=== PATIENT | female | born 1985 | race Caucasian/White ===

== ENCOUNTER → 2019-07-17 | Outpatient (REF) | payer MEDICAID, OTHER ==
[2019-07-17 18:07] LABS: HEMATOCRIT 38.4 % (36.0-47.0); HEMOGLOBIN 12.7 g/dl (12.0-15.5); MEAN CORPUSCULAR HEMOGLOBIN 31.3 pg (27.0-33.0); MEAN CORPUSCULAR HGB CONC 33.1 g/dl (32.0-36.5); MEAN CORPUSCULAR VOLUME 94.6 fl (80.0-96.0); PLATELET COUNT, AUTOMATED 265 10^3/uL (150-450); RED BLOOD COUNT 4.06 10^6/uL (4.00-5.40); WHITE BLOOD COUNT 6.7 10^3/uL (4.0-10.0)
[2019-07-18 11:16] LABS: HEPATITIS B SURFACE ANTIGEN NEGATIVE (NEGATIVE); HIV 1&2 SCREEN CENTAUR NEGATIVE (NEGATIVE); RUBELLA IgG QUALITATIVE IMMUNE (IMMUNE)
[2019-07-18 11:18] LABS: HEPATITIS C VIRUS ABY INDEX > 11.0 INDEX (<0.8)
== END ==
LOC: M PLALAB 15:01
PROVIDERS: ATTEND Advanced Practice Midwife
DX: Z34.81 Encounter for supervision of other normal pregnancy, first trimester (principal)

== ENCOUNTER → 2019-08-17 | Outpatient (CLI) | payer OTHER | LOC: M PLALAB 14:31 | PROVIDERS: ATTEND Advanced Practice Midwife | DX: R76.8 Other specified abnormal immunological findings in serum (principal) ==

== ENCOUNTER → 2019-08-17 | Outpatient (REF) | payer OTHER | LOC: M PLALAB 14:28 | PROVIDERS: ATTEND Advanced Practice Midwife | DX: Z53.9 Procedure and treatment not carried out, unspecified reason (principal) ==

== ENCOUNTER → 2019-08-17 | Outpatient (REF) | payer OTHER ==
[2019-08-17 19:11] LABS: CHLAMYDIA DNA AMPLIFICATION NEGATIVE (NEGATIVE); GC DNA AMPLIFICATION NEGATIVE (NEGATIVE)
== END ==
LOC: M SFHCWAGY 16:39
PROVIDERS: ATTEND Advanced Practice Midwife
DX: Z34.81 Encounter for supervision of other normal pregnancy, first trimester (principal)

== ENCOUNTER → 2019-09-18 | Outpatient (CLI) | payer OTHER ==
[~2019-09-18] MED LIST: ACET-683 PO; COLA100C5 PO; IBUP1TAB7 PO; IBUP80TA PO; OXYC1TAB23 PO; PRENTAB9 PO; PRIL20TA2 PO; ZOLO50TA PO
--- NOTE | 2019-09-19 02:43 | REP ---
Clinical: Anatomical evaluation. Comparison: None . Findings: Examination demonstrates a single live intrauterine in variable presentation. motion is identified by technologist. Placenta is noted anterior and grade zero without evidence for placenta previa or abruption. Amniotic fluid volume is normal. Cervix measures 3.3 cm in length and appears closed. No evidence for nuchal cord. Possible 3.5 cm anterior intramural fibroid. Gestational age by current measurements 19 weeks 1 day with THUAN 02/11/2020 . FHR equals 147 beats per minute. BPD 4.5 cm 19 weeks 4 days HC 16.5 cm 19 weeks 2 days AC 13.7 cm 19 weeks 1 day FL 3.0 cm 19 weeks 3 days HL 2.9 cm 19 weeks 4 days HC/AC ratio 1.20 Estimated weight 284 grams ( 50th percentile). Anatomical assessment demonstrates normal structures including cranium, choroid plexus, cavum, cerebellum/posterior fossa, diaphragm, stomach, cord insertion/three-vessel cord, bladder, and extremities. Limited evaluation of the facial features, heart/ventricular outflow tracts, kidneys and spine. Impression: 1. Single live intrauterine in variable presentation demonstrating appropriate estimated weight. Anatomical limitations as noted above may warrant reevaluation and follow-up. 2. Possible anterior intramural fibroid.
== END ==
LOC: M WHC 12:52
PROVIDERS: ATTEND Advanced Practice Midwife
DX: O09.522 Supervision of elderly multigravida, second trimester (principal); O09.292 Supervision of pregnancy with other poor reproductive or obstetric history, second trimester; Z3A.19 19 weeks gestation of pregnancy

== ENCOUNTER → 2019-10-23 | Outpatient (CLI) | payer OTHER ==
--- NOTE | 2019-10-23 14:37 | REP ---
Clinical: Anatomical evaluation. Comparison: 09/18/2019 . Findings: Examination demonstrates a single live intrauterine in cephalic presentation. motion is identified by technologist. Placenta is noted anterior and grade I without evidence for placenta previa or abruption. Amniotic fluid volume is normal. Cervix measures 3.5 cm in length and appears closed. No evidence for nuchal cord. Gestational age by LMP 24 weeks 1 day with THUAN 02/11/2020 . Gestational age by current measurements 24 weeks 6 days with THUAN 02/06/2020 . FHR equals 149 beats per minute. Estimated weight 792 grams ( 78th percentile). Anatomical assessment demonstrates normal structures including cranium, choroid plexus, cavum, cerebellum/posterior fossa, facial features, lungs, four-chamber heart/ventricular outflow tracts, stomach, cord insertion/three-vessel cord, kidneys/bladder, spine, and extremities. Impression: Single live intrauterine in cephalic presentation demonstrating appropriate interval growth. In conjunction with prior examination anatomical assessment is complete and normal. No gross abnormalities are identified.
== END ==
LOC: M WHC 11:34
PROVIDERS: ATTEND Specialist
DX: Z36.2 Encounter for other antenatal screening follow-up (principal); Z3A.24 24 weeks gestation of pregnancy

== ENCOUNTER → 2019-10-23 | Outpatient (REF) | payer OTHER ==
[2019-10-23 15:15] LABS: HEMATOCRIT 34.6 % (36.0-47.0); HEMOGLOBIN 11.4 g/dl (12.0-15.5); MEAN CORPUSCULAR HGB CONC 32.9 g/dl (32.0-36.5); MEAN CORPUSCULAR VOLUME 97.2 fl (80.0-96.0); PLATELET COUNT, AUTOMATED 222 10^3/uL (150-450); RED BLOOD COUNT 3.56 10^6/uL (4.00-5.40); WHITE BLOOD COUNT 8.1 10^3/uL (4.0-10.0)
== END ==
LOC: M PLALAB 11:33
PROVIDERS: ATTEND Specialist
DX: Z36.89 Encounter for other specified antenatal screening (principal); Z3A.00 Weeks of gestation of pregnancy not specified

== ENCOUNTER → 2020-01-16 | Outpatient (REF) | payer OTHER ==
[~2020-01-16] MED LIST changes: -COLA100C5 PO; -IBUP1TAB7 PO; -OXYC1TAB23 PO; -ZOLO50TA PO
== END ==
LOC: M SFHCWAGY 16:43
PROVIDERS: ATTEND Advanced Practice Midwife
DX: Z34.83 Encounter for supervision of other normal pregnancy, third trimester (principal); Z3A.00 Weeks of gestation of pregnancy not specified

== ENCOUNTER 2020-02-10 08:41 | Inpatient (IN) | payer OTHER ==
[2020-02-10] VITALS (20 sets, daily range): BP systolic 101–147; BP diastolic 56–80
[~2020-02-10] VITALS: Ht 165.1 cm; Wt 88.8 kg
[2020-02-10] MEDS ORDERED: NICOTINE 14 MG/24 HR TRANSDERMAL TD SCH (09:00)
[2020-02-10] MEDS ORDERED: PRENTAB9 PO (09:06)
[2020-02-10] MEDS ORDERED: PRIL20TA2 PO (09:06)
--- NOTE | 2020-02-10 10:58 | HPEPDOC ---
Obstetrical History & Physical General Date of Admission Feb 10, 2020 at 08:41 History of Present Illness 34yo who presents for an IOL secondary to AMA. 40+0 weeks . Denies VB/LOF/uctx. Reports +FM. ROS negative Chief Complaint: Induction of labor Information Provided By: Patient, RN/MD Age: 34 : 3 Term: 0 Pre-term: 0 Abortions: 2 Livin Care Care: Good Care Dating Final EDC for Daily Update: Feb 10, 2020 Final EDC by: LMP, 1st trimester (US) EGA at Admission: 40.0 Antepartum Course Diagnos(e)s Advanced maternal age. 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 BREAST: . ABDOMEN: Gravid and non-tender to touch. FETUS: Is vertex (VTX) by sterile vaginal examination (SVE), fetus is vertex (VTX) by Jorge. HEART RATE: Regular rate and rhythm. LUNGS: Clear to auscultation (CTA). EXTREMITIES: No edema. No clonus. Vital Signs[facility] Laboratory Tests 2 02/10/20 08:50: Serology Scanned Report Hepatitis B Testing CBC/BMP Laboratory Tests 02/10/20 08:50: Serology Scanned Report Hepatitis B Testing Pertinent Laboratoy Data Blood Type: A+ RBC Antibody Screen: Negative HIV: Negative Hepatitis B: Negative Hepatitis C: Positive Rapid Plasma Reagin: Nonreactive Rubella: Immune Varicella: Immune Chlamydia/Gonorrhea: Negative Group B Streptococcus: Negative Vaginal Examination Dilation: Fingertip Effacement: 50% Station: -3 Cervical Consistency: Soft Cervical Position: Anterior Presentation: Cephalic presentation Assessment Heart Rate (FHR): 140 Variability: Moderate Accelerations: Positive Decelerations: None Tocometer Frequency: irregular Assessment/Plan Assessment Roxie is a 34-year-old (G)3 para (P)0-0-2-0 at 40+0 weeks. Presents to Labor and Delivery (L&D) for an IOL. AMA. Plan Admit and orient. Routine labs Repeat UDS Feed Blender and consent. Group B Streptococcus (GBS) negative Counseled on IOL; start with cervical ripening with misoprostol. Anticipate . C-S as appropriate. ISABELLA MILLER DO Feb 10, 2020 10:57
[2020-02-10] MEDS ORDERED: LACTATED RINGER'S 1000 ML IV STA (10:59)
[2020-02-10] MEDS: LR 1,000 ML IV SCH ×2 (11:52→20:13)
[2020-02-10 12:02] LABS: HEMATOCRIT 37.6 % (36.0-47.0); HEMOGLOBIN 12.8 g/dl (12.0-15.5); MEAN CORPUSCULAR HEMOGLOBIN 31.4 pg (27.0-33.0); MEAN CORPUSCULAR VOLUME 92.2 fl (80.0-96.0); PLATELET COUNT, AUTOMATED 204 10^3/uL (150-450); RED BLOOD COUNT 4.08 10^6/uL (4.00-5.40); WHITE BLOOD COUNT 6.7 10^3/uL (4.0-10.0)
[2020-02-10] MEDS: miSOPROStol 50 MCG 1/2 TAB (S0191) SL SCH ×2 (12:16→15:48)
[2020-02-10 12:39] LABS: AMPHETAMINES URINE REFLEX NEGATIVE (NEGATIVE); BARBITURATES URINE REFLEX NEGATIVE (NEGATIVE); BENZODIAZEPINES URINE REFLEX NEGATIVE (NEGATIVE); CANNABINOIDS URINE REFLEX NEGATIVE (NEGATIVE); COCAINE METABOLITE URINE REFLE NEGATIVE (NEGATIVE); METHADONE URINE REFLEX NEGATIVE (NEGATIVE); OPIATES URINE REFLEX NEGATIVE (NEGATIVE); PHENCYCLIDINE URINE REFLEX NEGATIVE (NEGATIVE)
[2020-02-10] MEDS ORDERED: FENTANYL 2MCG/ML ROPIVACAINE 0.2% IN 0.9% NACL 100ML IVBAG As Ordered ONE (23:10)
[2020-02-10] MEDS ORDERED: diphenhydrAMINE 50MG/ML VIAL (J1200) IV PRN (23:50)
[2020-02-10] MEDS ORDERED: ePHEDrine SULFATE 25 MG/5 ML(5MG/ML) SYRINGE IV PRN (23:50)
[2020-02-10] MEDS ORDERED: FENTANYL/ROPIVACAINE/NACL BAG 100 ML EPIDURAL SCH (23:50)
[2020-02-10] MEDS ORDERED: NALOXONE INJ 0.4MG/1ML VIAL (J2310 PER 1MG) IV PRN (23:50)
[2020-02-10] MEDS ORDERED: LACTATED RINGER'S 1000 ML IV PRN (23:50)
[2020-02-10] MEDS ORDERED: REFRIGERATOR IV KEYS XX PRN (23:50)
[2020-02-10] MEDS ORDERED: EPIDURAL COMMENT XX SCH (23:50)
[2020-02-10] MEDS ORDERED: EPIDURAL/PCA KEYS XX PRN (23:50)
[2020-02-10] MEDS ORDERED: ONDANSETRON 4MG/2ML VIAL IV PRN (23:50)
[2020-02-11] VITALS (22 sets, daily range): BP systolic 87–136; BP diastolic 51–67
[2020-02-11] MEDS ORDERED: OXYTOCIN DRIP 30 UNITS in IV 1 EA IV SCH ×2 (01:30→04:02)
[2020-02-11] MEDS ORDERED: LR 1,000 ML IV SCH (04:02)
[2020-02-11] MEDS ORDERED: IBUPROFEN 800 MG TAB PO PRN (04:15)
[2020-02-11] MEDS ORDERED: ACETAMINOPHEN 500 MG TAB PO PRN (04:15)
[2020-02-11] MEDS ORDERED: DIBUCAINE 1% OINTMENT 30GM TOP PRN (04:15)
[2020-02-11] MEDS ORDERED: ONDANSETRON 4MG/2ML VIAL IV PRN (04:15)
[2020-02-11] MEDS ORDERED: IBUPROFEN 600MG TAB PO PRN (04:15)
[2020-02-11] MEDS ORDERED: MEASLES,MUMPS,RUBELLA VACCINE INJ (MMR-II) (90707) SC SCH (04:15)
[2020-02-11] MEDS ORDERED: RHOGAM 300 MCG (1500 IU) INJ (J2790) IM SCH (04:15)
[2020-02-11] MEDS ORDERED: PROMETHAZINE 25 MG TAB PO PRN (04:15)
[2020-02-11] MEDS ORDERED: DOCUSATE SODIUM 100 MG CAP PO PRN (04:15)
--- NOTE | 2020-02-11 04:17 | DNPDOC ---
[facility] Delivery Note Delivery Note DATE OF DELIVERY: 02/11/2020 TIME OF DELIVERY: 0336 Spontaneous vaginal delivery. WORKDAY SENIOR ASSOCIATE: Dr. Lauri Mcqueen DO FACOG ANESTHESIA: Epidural. ESTIMATED BLOOD LOSS: 200 mL. FINDINGS: 8 pound 11 ounce (3950g) male infant, Score 9 and 9. DELIVERY SUMMARY: The active phase and second stage of labor progressed in normal fashion.. She received Pitocin augmentation throughout her labor course. The head delivered in the DAT position, and restituted LOT. No nuchal cord was noted. The anterior shoulder delivered with gentle downward guidance and the remainder of the body delivered with ease. The baby was placed on the patient's chest. Delayed cord clamping occurred for approximately 1 minute. The cord was then doubly clamped and cut. IV Pitocin was bolused to actively manage the third stage of labor. The placenta delivered intact without any difficulty within 10 minutes of delivery. The uterine fundus was noted to be firm and 2 cm below the umbilicus. The cervix, vagina, vulva and perineum were inspected. A first degree laceration was noted and immediately repaired with 3-0 Vicryl in typical fashion. Excellent hemostasis was noted. Sponge, needle and instrument counts were correct per protocol. DO DEREJE Valentine JONATHAN R. DO Feb 11, 2020 04:17
[2020-02-11] MEDS: PRENATAL VITAMINS CHEWABLE TABLET PO SCH (09:04)
[2020-02-11] MEDS ORDERED: NICOTINE 14 MG/24 HR TRANSDERMAL TD PRN (16:30)
[2020-02-11] MEDS: ACETAMINOPHEN TAB 650MG DOSE (2X325MG) PO PRN (17:42)
[2020-02-12 05:29] VITALS: BP 125/72
--- NOTE | 2020-02-12 07:00 | IPNPDOC ---
Progress Note Date of Service: Feb 12, 2020 Day#: 1 Progress Note SUBJECT: Roxie is a who had a uncomplicated spontaneous vaginal delivery on 02/11/20. She has been ambulating, voiding spontaneously without issue and tolerating regular diet. Breast feeding without issue. Desires to be discharged to home today. OBJECTIVE: VITAL SIGNS: Within normal limits, afebrile. Alert and oriented times three. Repiratory: regular rate with no use of accessory muscles. Abdomen: Fundus firm at U. Soft, NTTP. Minimal lochia. ASSESSMENT: Day 1 from uncomplicated vaginal delivery PLAN: 1. Discharge to home today. 2. Tylenol and Motrin for pain. 3. See discharge notes. VS, I&O, 24H, Fishbone Vital Signs/I&O Vital Signs Date Time Temp Pulse Resp B/P (MAP) Pulse Ox O2 Delivery O2 Flow Rate FiO2 02/12/20 05:29 97.5 87 16 125/72 (89) 97 Room Air ELSI JOHNSON CNM Feb 12, 2020 07:00
[2020-02-12] MEDS ORDERED: IBUP80TA PO (07:19)
[2020-02-12] MEDS ORDERED: ACET-683 PO (07:19)
[2020-02-12] MEDS ORDERED: INFLUENZA QUADRIVALENT PF VACCINE 0.5ML SYRINGE IM ONE (09:00)
[2020-02-12] MEDS ORDERED: BOOSTRIX/ADACEL VACCINE (DIPHTH/PERTUSS/ACELL/TETANUS) 0.5ML SYR IM ONE (09:00)
[2020-02-12] MEDS: PRENATAL VITAMINS CHEWABLE TABLET PO SCH (09:02)
[2020-02-12] MEDS: ACETAMINOPHEN TAB 650MG DOSE (2X325MG) PO PRN (14:07)
== END 2020-02-12 17:20 | disposition home or self-care (01) | DRG 560 ==
LOC: M LDI 08:41 → M OBS 02-11 05:30
PROVIDERS: ADMIT Obstetrics & Gynecology; ATTEND Obstetrics & Gynecology
PROC: 3E0DXGC Introduction of Other Therapeutic Substance into Mouth and Pharynx, External Approach (ICD-10-PCS; 2020-02-10)
PROC: 10E0XZZ Delivery of Products of Conception, External Approach (ICD-10-PCS; principal; 2020-02-11)
PROC: 0HQ9XZZ Repair Perineum Skin, External Approach (ICD-10-PCS; 2020-02-11)
DX: O70.0 First degree perineal laceration during delivery (principal); O09.523 Supervision of elderly multigravida, third trimester; Z37.0 Single live birth; Z3A.40 40 weeks gestation of pregnancy

== ENCOUNTER → 2020-05-15 | Outpatient (REF) | payer OTHER | LOC: M SFHCPLAZ 18:06 | PROVIDERS: ATTEND Advanced Practice Midwife | DX: Z12.4 Encounter for screening for malignant neoplasm of cervix (principal) ==

== ENCOUNTER → 2020-06-02 | Outpatient (CLI) | payer OTHER ==
[~2020-06-02] MED LIST changes: +COLA100C5 PO; +IBUP1TAB7 PO; +OXYC1TAB23 PO; +ZOLO50TA PO
== END ==
LOC: M LABSMTC 12:37
PROVIDERS: ATTEND Anesthesiology
DX: Z20.828 Contact with and (suspected) exposure to other viral communicable diseases (principal)

== ENCOUNTER → 2020-06-17 | Outpatient (CLI) | payer OTHER | LOC: M LABSMTC 10:06 | PROVIDERS: ATTEND Anesthesiology | DX: Z01.812 Encounter for preprocedural laboratory examination (principal); Z20.822 Contact with and (suspected) exposure to COVID-19 ==

== ENCOUNTER 2020-06-18 12:23 | Day surgery (SDC) | payer OTHER ==
[~2020-06-18] VITALS: Ht 162.6 cm; Wt 83.5 kg
[~2020-06-18 12:23] MED LIST changes: -COLA100C5 PO; -IBUP1TAB7 PO; +LIDOCAINE 1% MDV 20ML VIAL SQ PRN; +LIDOCAINE 2% 100MG/5ML SDV (FOR ANES.) As Ordered ONE; +LR 1,000 ML IV ONE; +ONDANSETRON 4MG/2ML VIAL As Ordered ONE; -OXYC1TAB23 PO; +ROCURONIUM BROMIDE 50 MG/5 ML VIAL As Ordered ONE; +dexameTHASONE 4 MG/ML 1ML VIAL (J1100 PER 1MG) As Ordered ONE; +propofoL 200 MG/20 ML VIAL As Ordered ONE
[2020-06-18] MEDS ORDERED: MIDAZOLAM INJ 2MG/2ML VIAL (J2250 PER 1MG) As Ordered ONE (12:26)
[2020-06-18] MEDS ORDERED: fentaNYL 100 MCG/2 ML INJECTION (J3010) As Ordered ONE (12:26)
--- OUTSIDE RECORDS SUMMARY | 2020-06-18 12:27 | CCD ---
Author Author [facility] Organization [facility] Address Unknown Phone Unavailable Care Team Providers Care Hvac Estimator Name Role Phone Adilene Anthony Unavailable PROBLEMS Type Condition ICD9-CM Code [id number] Code Onset Dates Condition S tatus SNOMED Code Notes Problem Supervision of other normal Z34.80 Ac tive [id number] ALLERGIES No Known Allergies ENCOUNTERS from 1984 to 2020-05-21 Encounter Location Date Provider Diagnosis [facility] [place] [address] May, Adilene [facility] Routine gynecolog ical examination Z01.419 and Encounter for screening for malignant neoplasm of cervix Z12.4 IMMUNIZATIONS No Information SOCIAL HISTORY Tobacco Use: Social History Observation Description Date Details (start date - stop date) Current Smoker Sex Assigned At : Social History Observation Description Sex Assigned At Unknown Alcohol Screening: Question Answer Notes Did you have a drink containing alcohol in the past year? Ye s Points 3 Interpretation Positive How often did you have six or more drinks on one occas ion in the past year? Never (0 points) How many drinks did you have on a typica l day when you were drinking in the past year? 5 or 6 (2 points) How often did you have a drink containing alcohol in t he past year? Monthly or less (1 point) Tobacco Use: Question Answer Notes Are you a: current smoker How many cigarettes a day do you smoke? 11-20 Are you interested in quitting? Not ready to quit REASON FOR REFERRAL No Information VITAL SIGNS Weight 185.0 lbs May, Weight-kg 83.91 kg May, Height 66 in May, BMI 29.86 kg/m2 May, Blood pressure systolic 108 mm Hg May, Blood pressure diastolic 70 mm Hg May, MEDICATIONS Medication SIG (Take, Route, Frequency, Duration) Notes Start Da te End Date Status Omeprazole 20 MG 1 capsule 30 minutes before morning meal Orally On ce a day Not-Taking Zoloft 25 MG 1 tablet Orally Once a day for 30 day(s) 24 N 2019 Active Vitamin 27-0.8 MG 1 tablet Orally Once a day Not-Taking PROCEDURES No Information RESULTS Component Value Reference Range PAP REQUEST FOR SERVICE Reviewed date:05/20/2020 11:20:19 Interpretation: Performing Lab:[facility], [facility] [address] [facility] [id number] , ,[place] [address] REASON FOR VISIT ANNUAL. Has BTL scheduled end of month MEDICAL (GENERAL) HISTORY Type Description Date Medical History depression Surgical History D&C Hospitalization History malnutrition Hospitalization History childbirth Goals Section No Information Health Concerns No Information MEDICAL EQUIPMENT No Information MENTAL STATUS No Information FUNCTIONAL STATUS No Information ASSESSMENTS Encounter Date Diagnosis Assessment Notes Treatment Notes Treatm ent Clinical Notes May, Routine gynecological examination (ICD-10 - Z01. 419) May, Encounter for screening for malignant neoplasm of cervix (ICD-10 - Z12.4) PLAN OF TREATMENT Next Appt Details prn Reason: Provider Name:Lauri Mcqueen, 07:30:00 AM, [address] [place] [address], [phone], Provider Name:Lauri Mcqueen, 09:30:00 AM, [address] [place] [address], [phone], Provider Name:Lauri Mcqueen, 08:20:00 AM, [address] [place] [address], [phone], Insurance Providers Payer Name Payer Address Payer Phone Insured Name Patient Relati onship to Insured Coverage Start Date Coverage End Date FORMERLY [facility] [employer] CLAIM[employer] DEPT [address] [place] [phone] ANA HERNANDEZ
--- OUTSIDE RECORDS SUMMARY | 2020-06-18 12:27 | CCD ---
Author Author [facility] Organization [facility] Address Unknown Phone Unavailable Support Name Relationship Address Phone ESTRADA Next Of Kin [address] [place] [address] NORA THOMPSON Next Of Kin [address] [place] [address] Nieves RODRIGUEZ Next Of Kin [address] [place] [address] CRACKER [place] [address] [address] Next Of Kin Unknown Unavailable CARLEE PRABHAKAR Next Of Kin [address] [place] [address] PAPA [place] [address] Nieves HERNANDEZ Next Of Kin [address] [place] [address] Re-disclosure Warning The records that you are about to access may contain information from federally-assisted alcohol or drug abuse programs. If such information is present, then the following federally mandated warning applies: This information has been disclosed to you from records protected by federal confidentiality rules (42 CFR part 2). The federal rules prohibit you from making any further disclosure of this information unless further disclosure is expressly permitted by the written consent of the person to whom it pertains or as otherwise permitted by 42 CFR part 2. A general authorization for the release of medical or other information is NOT sufficient for this purpose. The Federal rules restrict any use of the information to criminally investigate or prosecute any alcohol or drug abuse patient.The records that you are about to access may contain highly sensitive health information, the redisclosure of which is protected by Article 27-F of the [facility] Public Health law. If you continue you may have access to information: Regarding HIV / AIDS; Provided by facilities licensed or operated by the [facility] Office of Mental Health; or Provided by the [facility] Office for People With Developmental Disabilities. If such information is present, then the following [facility] mandated warning applies: This information has been disclosed to you from confidential records which are protected by state law. State law prohibits you from making any further disclosure of this information without the specific written consent of the person to whom it pertains, or as otherwise permitted by law. Any unauthorized further disclosure in violation of state law may result in a fine or halfway sentence or both. A general authorization for the release of medical or other information is NOT sufficient authorization for further disc losure. Encounters Encounter Providers Location Date Indications Data Source(s ) Outpatient [address] [facility] [id number] 05/15/2020 12:00:00 AM EST eCW1 ([facility]) Unknown [address] [facility] [address] 04/14/2020 12:00:00 AM EST eCW1 ([facility]) ( ESTOB) [facility] Est OB [address] [place] [address] 02/07/2020 12:00:00 AM EDT eCW1 ([facility]) ( ESTOB) [facility] Est OB [address] [place] [address] 11/13/2019 12:00:00 AM EDT eCW1 ([facility]) Outpatient 11/05/2019 05:08:00 AM EDT [facility] Outpatient 09/28/2019 06:16:00 AM EDT [facility] ( ESTOB) [facility] Est OB [address] [place] [address] 09/14/2019 12:00:00 AM EDT eCW1 ([facility]) [facility] [address] [place] [address] 09/03/2019 12:00:00 AM EDT eCW1 ([facility]) [facility] [address] [place] [address] 08/20/2019 12:00:00 AM EDT eCW1 ([facility]) [facility] [address] [place] [address] 08/17/2019 12:00:00 AM EDT eCW1 ([facility]) [facility] [address] [place] [address] 07/18/2019 12:00:00 AM EDT eCW1 ([facility]) [facility] [address] [place] [address] 07/17/2019 12:00:00 AM EDT eCW1 ([facility]) Medications Medication Brand Name Start Date Product Form Dose Route Admi nistrative Instructions Pharmacy Instructions Status Indications Reaction Description Data Source(s) Sertraline 25 MG Oral Tablet [Zoloft] Zoloft 25 MG Zoloft 25 MG 04/01/2020 12:00:00 AM EST 1.0 {tablet} active Zo loft 25 MG eCW1 ([facility]) Sertraline 25 MG Oral Tablet [Zoloft] Zoloft 25 MG Zoloft 25 MG 04/01/2020 12:00:00 AM EST 1.0 {tablet} active Zo loft 25 MG eCW1 ([facility]) BuPROPion HCl ER (Smoking Det) 150 MG BuPROPion HCl ER (Smok ing Det) 150 MG 09/03/2019 12:00:00 AM EDT active 1 tablet in the morning eCW1 ([facility]) BuPROPion HCl ER (Smoking Det) 150 MG BuPROPion HCl ER (Smok ing Det) 150 MG 09/03/2019 12:00:00 AM EDT 1.0 {tablet_in_the_morning} active BuPROPion HCl ER (Smoking Det) 150 MG eCW1 ([facility]) NITROFURANTOIN, MACROCRYSTALS 25 MG / Ni trofurantoin, Monohydrate 75 MG Oral Capsule [Macrobid] Macrobid 100 MG Macrobid 100 MG 08/20/2019 12:00:00 AM EDT active capsule eCW1 ([facility]) NITROFURANTOIN, MACROCRYSTALS 25 MG / Ni trofurantoin, Monohydrate 75 MG Oral Capsule [Macrobid] Macrobid 100 MG Macrobid 100 MG 08/20/2019 12:00:00 AM EDT active Macrobid 100 MG eCW1 ([facility]) 75 mg 07/07/2019 12:00:00 AM EST capsule 10 TAKE ONE CAPSULE BY MOUTH TWICE A DAY FOR 5 DAYS TAKE ONE CAPSULE BY MOUTH TWICE A DAY FOR 5 DAYS SOLD: 07/08/2019 [facility] 25 mg 07/07/2019 12:00:00 AM EST tablet 90 TAKE ONE TABLET BY MOUTH THREE TIMES A DAY NEEDED FOR NAUSEA TAKE ONE TABLET BY MOUTH THREE TIMES A D AY NEEDED FOR NAUSEA SOLD: 07/08/2019 [facility] Insurance Providers Payer name Policy type / Coverage type Policy ID Covered democrat ID Covered democrat's relationship to dick Policy Dick Plan Information KIESHA [id number] SP [id number] KIESHA [facility] [id number] MEDICAID [id number] SP [id number] SELF PAY ONLY [id number] SP [id number] [facility] INSURANCE FUND [id number] SP [id number] Problems, Conditions, and Diagnoses Code Display Name Description Problem Type Effective Dates Data Source(s) Z34.80 care Supervision of other normal P roblem 07/17/2019 12:00:00 AM EDT eCW1 ([facility]) Z34.80 care Supervision of other normal P roblem 07/17/2019 12:00:00 AM EDT eCW1 ([facility]) Surgeries/Procedures Procedure Description Date Indications Data Source(s) OB Visit 08/17/2019 12:00:00 AM EDT e CW1 ([facility]) US UTERUS 14 WK TRANSABDL GESTAT 2019 12:00:00 AM EDT eCW1 ([facility]) Results ID Date Data Source [id number] 06/02/2020 12:00:00 PM EST [facility] Name Value Range Interpretation Code Description Data Ju rce(s) Supporting Document(s) SARS coronavirus 2 RNA Not Detected [facility] [place] This lab was ordered by [facility] and reported by [facility]. ID Date Data Source PAP REQUEST FOR SERVICE 05/15/2020 12:00:00 AM EST eCW1 ([facility]) Name Value Range Interpretation Code Description Data Ju rce(s) Supporting Document(s) PAP REQUEST FOR SERVICE eCW1 ( [facility]) ID Date Data Source [id number] 02/05/2020 12:00:00 AM EDT [facility] Name Value Range Interpretation Code Description Data Ju rce(s) Supporting Document(s) SARS coronavirus 2 RNA [Presence] in Res piratory specimen by ANGELINA with probe detection [facility] This lab was ordered by Roma Guerrier and reported by [facility]. ID Date Data Source HEPATITIS C ANTIBODY INDEX 07/17/2019 12:00:00 AM EDT eCW1 ( [facility]) Name Value Range Interpretation Code Description Data Ju rce(s) Supporting Document(s) > 11.0 <0.8 HEPATITIS C VIRUS CHELSIE IND EX eCW1 ([facility]) ID Date Data Source RUBELLA IMMUNE STATUS IgG 07/17/2019 12:00:00 AM EDT eCW1 ([facility]) Name Value Range Interpretation Code Description Data Ju rce(s) Supporting Document(s) IMMUNE IMMUNE RUBELLA IgG QUALITATIVE eCW1 ( [facility]) ID Date Data Source SYPHILIS ANTIBODY (RPR SCREEN) 07/17/2019 12:00:00 AM EDT eC W1 ([facility]) Name Value Range Interpretation Code Description Data Ju rce(s) Supporting Document(s) NONREACTIVE NONREACTIVE SYPHILIS eCW1 ([facility]) ID Date Data Source HEPATITIS B SURFACE ANTIGEN 07/17/2019 12:00:00 AM EDT eCW1 ([facility]) Name Value Range Interpretation Code Description Data Ju rce(s) Supporting Document(s) NEGATIVE NEGATIVE HEPATITIS B SURFACE ANTIG EN eCW1 ([facility]) ID Date Data Source CBC - Complete Blood Count 07/17/2019 12:00:00 AM EDT eCW1 ( [facility]) Name Value Range Interpretation Code Description Data Ju rce(s) Supporting Document(s) 4.06 4.00-5.40 RED BLOOD COUNT eCW1 ([facility]) 6.7 4.0-10.0 WHITE BLOOD COUNT eCW1 ([facility]) 94.6 80.0-96.0 MEAN CORPUSCULAR VOLUME e CW1 ([facility]) 12.7 12.0-15.5 HEMOGLOBIN eCW1 ([facility]) 38.4 36.0-47.0 HEMATOCRIT eCW1 ([facility]) 31.3 27.0-33.0 MEAN CORPUSCULAR HEMOGLOB IN eCW1 ([facility]) 13.3 11.5-14.5 RED CELL DISTRIBUTION WID TH eCW1 ([facility]) 265 150-450 PLATELET COUNT, AUTOMATED eCW1 ([facility]) 33.1 32.0-36.5 MEAN CORPUSCULAR HGB CONC eCW1 ([facility]) ID Date Data Source Type and Screen Prenatal1 07/17/2019 12:00:00 AM EDT eCW1 ([facility]) Name Value Range Interpretation Code Description Data Ju rce(s) Supporting Document(s) NEGATIVE AB SCREEN PNP1 GEL (VIS) eCW1 ([facility]) Procedure Social History Code Duration Value Status Description Data Source(s ) Smoking 05/15/2020 12:00:00 AM EST Current Smoker completed Curre nt Smoker eCW1 ([facility]) Smoking 04/01/2020 12:00:00 AM EST Current Smoker completed Curre nt Smoker eCW1 ([facility]) Smoking 02/07/2020 12:00:00 AM EDT Current Smoker completed Curre nt Smoker eCW1 ([facility]) Smoking 02/07/2020 12:00:00 AM EDT Current Smoker completed Curre nt Smoker eCW1 ([facility]) Smoking 09/14/2019 12:00:00 AM EDT Current Smoker completed Curre nt Smoker eCW1 ([facility]) Vital Signs ID Date Data Source UNK Name Value Range Interpretation Code Description Data Source(s) Diastolic blood pressure 70 mm[Hg] 70 mm[Hg] eCW1 ([facility]) Systolic blood pressure 108 mm[Hg] 108 mm[Hg] e CW1 ([facility]) Body mass index (BMI) [Ratio] 29.86 kg/m2 29.86 kg/m2 eCW1 ([facility]) Body height 66 [in_i] 66 [in_i] eCW1 ([facility]) Body weight 83.91 kg 83.91 kg eCW1 ([facility]) Body weight 185.0 [lb_av] 185.0 [lb_av] eCW1 ([facility]) Diastolic blood pressure 70 mm[Hg] 70 mm[Hg] eCW1 ([facility]) Systolic blood pressure 116 mm[Hg] 116 mm[Hg] e CW1 ([facility]) Body mass index (BMI) [Ratio] 31.797 kg/m2 31.7 97 kg/m2 eCW1 ([facility]) Body height 66 [in_i] 66 [in_i] eCW1 ([facility]) Body weight 197 [lb_av] 197 [lb_av] eCW1 ([facility]) Diastolic blood pressure 66 mm[Hg] 66 mm[Hg] eCW1 ([facility]) Systolic blood pressure 110 mm[Hg] 110 mm[Hg] e CW1 ([facility]) Body mass index (BMI) [Ratio] 31.474 kg/m2 31.4 74 kg/m2 eCW1 ([facility]) Body height 66 [in_i] 66 [in_i] eCW1 ([facility]) Body weight 195 [lb_av] 195 [lb_av] eCW1 ([facility]) Diastolic blood pressure 64 mm[Hg] 64 mm[Hg] eCW1 ([facility]) Systolic blood pressure 112 mm[Hg] 112 mm[Hg] e CW1 ([facility]) Body mass index (BMI) [Ratio] 30.667 kg/m2 30.6 67 kg/m2 eCW1 ([facility]) Body height 66 [in_i] 66 [in_i] eCW1 ([facility]) Body weight 190 [lb_av] 190 [lb_av] eCW1 ([facility]) Body mass index (BMI) [Ratio] 30.686 kg/m2 30.6 86 kg/m2 eCW1 ([facility]) Body height 65 [in_us] 65 [in_us] eCW1 ([facility]) Body weight Measured 184.4 [lb_av] 184.4 [lb_av ] eCW1 ([facility]) Body mass index (BMI) [Ratio] 30.187 kg/m2 30.1 87 kg/m2 eCW1 ([facility]) Body height 65 [in_us] 65 [in_us] eCW1 ([facility]) Body weight Measured 181.4 [lb_av] 181.4 [lb_av ] eCW1 ([facility]) Patient Treatment Plan of Care Planned Activity Planned Date Details Description Data Source (s) Sertraline 25 MG Oral Tablet [Zoloft] 04/01/2020 12:00:00 AM EST eCW1 ([facility]) BuPROPion HCl ER (Smoking Det) 150 MG 09/03/2019 12:00:00 AM EDT eCW1 ([facility]) NITROFURANTOIN, MACROCRYSTALS 25 MG / Ni trofurantoin, Monohydrate 75 MG Oral Capsule [Macrobid] 08/20/2019 12:00:00 AM EDT eC W1 ([facility])
--- OUTSIDE RECORDS SUMMARY | 2020-06-18 12:27 | CCD ---
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 Role Phone Lauri Mcqueen Unavailable PROBLEMS Type Condition ICD9-CM Code GER22-TQ Code Onset Dates Condition S tatus SNOMED Code Notes Problem Supervision of other normal Z34.80 Ac tive [id number] ALLERGIES No Known Allergies ENCOUNTERS from 1984 to 2020-04-14 Encounter Location Date Provider Diagnosis [facility] [address] [place] [id number] Apr, Lauri Mcqueen IMMUNIZATIONS No Information SOCIAL HISTORY Tobacco Use: Social History Observation Description Date Details (start date - stop date) Current Smoker Sex Assigned At : Social History Observation Description Sex Assigned At Unknown Tobacco Use: Question Answer Notes Are you a: current smoker How many cigarettes a day do you smoke? 5 or less Are you interested in quitting? Ready to quit REASON FOR REFERRAL No Information VITAL SIGNS No information MEDICATIONS Medication SIG (Take, Route, Frequency, Duration) Notes Start Da te End Date Status Omeprazole 20 MG 1 capsule 30 minutes before morning meal Orally On a day Not-Taking Vitamin 27-0.8 MG 1 tablet Orally Once a day Not-Taking Zoloft 25 MG 1 tablet Orally Once a day for 30 day(s) 2019 Active PROCEDURES No Information RESULTS No Results REASON FOR VISIT AUTHORIZATION MEDICAL (GENERAL) HISTORY Type Description Date Medical History depression Surgical History D&C Hospitalization History malnutrition Hospitalization History childbirth Goals Section No Information Health Concerns No Information MEDICAL EQUIPMENT No Information MENTAL STATUS No Information FUNCTIONAL STATUS No Information ASSESSMENTS No Information PLAN OF TREATMENT Medication Medication Name Sig Start Date Stop Date Zoloft 25 MG 1 tablet Orally Once a day for 30 day(s) Mar, Next Appt Details Provider Name:Adilene Cardjeanettecheo, 2020-05-15 02:00:00 PM, [address] [place] [address], [phone], Provider Name:Lauri Mcqueen, 01:00:00 PM, [address] [place] [address], [phone], Provider Name:Lauri Mcqueen, 09:30:00 AM, [address] [place] [address], [phone], Provider Name:Lauri Mcqueen, 08:20:00 AM, [address] [place] [address], [phone], Insurance Providers Payer Name Payer Address Payer Phone Insured Name Patient Relati onship to Insured Coverage Start Date Coverage End Date [facility] CLAIMS DEPT [address] [facility] [phone] ANA HERNANDEZ
[2020-06-18 12:59] LABS: HEMATOCRIT 45.6 % (36.0-47.0); HEMOGLOBIN 14.5 g/dl (12.0-15.5); MEAN CORPUSCULAR HEMOGLOBIN 30.3 pg (27.0-33.0); MEAN CORPUSCULAR HGB CONC 31.8 g/dl (32.0-36.5); MEAN CORPUSCULAR VOLUME 95.4 fl (80.0-96.0); PLATELET COUNT, AUTOMATED 216 10^3/uL (150-450); RED BLOOD COUNT 4.78 10^6/uL (4.00-5.40); WHITE BLOOD COUNT 5.1 10^3/uL (4.0-10.0)
[2020-06-18] MEDS ORDERED: BUPIVACAINE HCL 0.25% 10ML VIAL As Ordered ONE (13:07)
[2020-06-18] MEDS ORDERED: SILVER NITRATE APPLICATOR As Ordered ONE (13:08)
[2020-06-18 13:22] LABS: HCG, SERUM QUALITATIVE NEGATIVE (NEGATIVE)
[2020-06-18] MEDS ORDERED: SUGAMMADEX SODIUM 500 MG/5 ML VIAL (BRIDION) As Ordered ONE (14:30)
--- NOTE | 2020-06-18 14:43 | ROOPDOC ---
[facility] Report Of Operation Report of Operation Date of procedure: 06/18/2020 Preoperative diagnosis: Satisfied parity. Postoperative diagnosis: Same Procedure: Laparoscopic bilateral salpingectomy Anesthesia: Gen. endotracheal Estimated blood loss 15 mL IV fluids replaced 700 mL lactated Ringer's Drains: In and out catheter 25 mL of urine Complications: None Preoperative antibiotics: None indicated Specimens: Bilateral fallopian tubes Intraoperative findings: Normal size, shape, contour of the uterus. Normal adnexa/ovaries bilaterally. Minimal pelvic adhesions Procedure: The patient was counseled and consented on the risks, benefits, indications, and alternatives of the procedure. Informed consent was obtained. She was taken to the operating room with an IV running. She was placed on the operating table in the dorsal supine position. Gen. anesthesia was administered and the airway was secured without any difficulty. A timeout was performed per protocol. She was prepared and draped in the normal sterile fashion. Attention was turned to the pelvis. The bladder was drained with in and out sterile catheter. A speculum was placed into the vagina with good visualization of the cervix. A single- tooth tenaculum was placed on the anterior lip of the cervix and downward traction was applied. The cervix was sequentially dilated with Claudy dilators up to a #16. A ZUMI uterine manipulator was placed without any difficulty. The single-tooth tenaculum was removed. The tenaculum sites were noted to be hemostatic. A sterile glove switch was performed. Attention was turned to the abdomen. A 5mm umbilical incision was made with the 11 blade. Through this incision, a Veress needle was placed into the intraperitoneal cavity. Intraperitoneal placement was confirmed with ease of flow of normal saline, a positive drop test and no return on aspiration. The opening pressure was 2 mmHg. The abdomen was insufflated with 2 L of CO2. The Veress needle was removed. A 5 mm laparoscopic trocar was placed under direct visualization without any difficulty, and intraperitoneal placement was confirmed. No incidental bleeding or injury was evident. The patient was placed in steep Trendelenburg. 2 additional laparoscopic port sites were placed through 5 mm incisions in the lower left quadrant. Each trocar/cannula was placed under direct visualization without any difficulty, incidental bleeding or injury. Attention was turned to the right fallopian tube. The right fallopian tube was followed out to the fimbriated end, grasped and elevated. The underlying mesosalpinx was sequentially clamped, coagulated and transected, until the level of the cornu was reached. At this level, the fallopian tube was clamped, coagulated and transected, thus amputating the fallopian tube. The fallopian tube was brought through the cannula without any difficulty and sent to pathology for permanent section. Attention was turned to the left fallopian tube. The left fallopian tube was followed out to the fimbriated end, grasped and elevated. The underlying mesosalpinx was sequentially clamped, coagulated and transected, until the level of the cornu was reached. At this level the fallopian tube was clamped, coagulated and transected, thus amputating the fallopian tube. The fallopian tube was brought to the cannula without any difficulty and sent to pathology for permanent section. Both right and left surgical sites were noted to be completely hemostatic. The gas was released from the abdomen. The patient was taken out of Trendelenburg position. The cannulas were removed. The skin incisions were closed with 4-0 Monocryl in subcuticular fashion and reinforced with Dermabond. The uterine manipulator was removed, the vagina was noted to be clear of any sponge or instrument. Sponge, needle and instrument counts were correct per protocol. The patient tolerated the entire procedure very well. She was transferred to the PACU in good and stable condition. DO DEREJE Valentine JONATHAN R. DO Jun 18, 2020 14:43
[2020-06-18] MEDS ORDERED: OXYC1TAB23 PO (14:44)
[2020-06-18] MEDS ORDERED: IBUP1TAB7 PO (14:45)
[2020-06-18] MEDS ORDERED: COLA100C5 PO (14:46)
[2020-06-18] MEDS ORDERED: ACETAMINOPHEN 500 MG TAB As Ordered ONE (15:22)
[2020-06-18] MEDS ORDERED: ACETAMINOPHEN 500 MG TAB PO ONE (15:30)
[2020-06-18 16:25] VITALS: BP 118/56
== END 2020-06-18 16:25 | disposition home or self-care (01) ==
LOC: M SDC 12:23
PROVIDERS: ATTEND Obstetrics & Gynecology
DX: Z30.2 Encounter for sterilization (principal); F17.218 Nicotine dependence, cigarettes, with other nicotine-induced disorders; K21.9 Gastro-esophageal reflux disease without esophagitis; B18.2 Chronic viral hepatitis C; Z79.899 Other long term (current) drug therapy; F41.9 Anxiety disorder, unspecified; F32.9 Major depressive disorder, single episode, unspecified
CPT/HCPCS: 36415; 58661; 84703; 85027; 86850; 86900; 86901; 88302; J1100; J2250; J2405; J3010

== ENCOUNTER → 2020-07-01 | Outpatient (CLI) | payer OTHER ==
[~2020-07-01] MED LIST changes: +COLA100C5 PO; +IBUP1TAB7 PO; -LIDOCAINE 1% MDV 20ML VIAL SQ PRN; -LIDOCAINE 2% 100MG/5ML SDV (FOR ANES.) As Ordered ONE; -LR 1,000 ML IV ONE; -ONDANSETRON 4MG/2ML VIAL As Ordered ONE; +OXYC1TAB23 PO; -ROCURONIUM BROMIDE 50 MG/5 ML VIAL As Ordered ONE; -dexameTHASONE 4 MG/ML 1ML VIAL (J1100 PER 1MG) As Ordered ONE; -propofoL 200 MG/20 ML VIAL As Ordered ONE
--- NOTE | 2020-07-01 17:08 | REP ---
INDICATION: N63.10 LUMP OF RIGHT BREAST UOQ. Patient reports 2 palpable lumps in the upper outer quadrant of the right breast, 10 o'clock and 11 o'clock position. COMPARISON: No comparison breast imaging. TECHNIQUE: . Targeted right breast sonography, upper outer quadrant. FINDINGS: Scanning at the 10 o'clock position, 4 cm from the nipple, at the site of the palpable lump, there is a very superficial subdermal cystic lesion measuring 0.4 x 0.3 x 0.2 cm. This does not have suspicious sonographic features. Scanning at the 11 o'clock position at the site of the palpable lump 8 cm from the nipple, there is an almost identical very superficial subdermal cystic structure measuring 0.3 x 0.3 x 0.2 cm. This does not have suspicious sonographic features. IMPRESSION: BI-RADS category 2 benign findings. Clinical follow-up is recommended. Patient's Sylvia-Rhiannon estimated lifetime breast cancer risk assessment is 11.7%. <Electronically signed by Josiah Hobbs > 07/01/20 [id number]
== END ==
LOC: M WHC 14:11
PROVIDERS: ATTEND Obstetrics & Gynecology
DX: N63.10 Unspecified lump in the right breast, unspecified quadrant (principal)

== ENCOUNTER 2020-07-05 15:56 | Emergency (ER) | payer OTHER ==
[~2020-07-05] VITALS: Ht 170.2 cm; Wt 84.5 kg
[2020-07-05] MEDS ORDERED: LIDOCAINE 4% CREAM 5GM (LMX4) TOP ONE (16:50)
[2020-07-05] MEDS ORDERED: NAPROXEN 250 MG TAB PO ONE (16:50)
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
[2020-07-05] MEDS ORDERED: NAPR-837 PO (17:28)
[2020-07-05] MEDS ORDERED: ANEC4CRE3 TOP (17:28)
[2020-07-05 17:36] VITALS: BP 110/68
== END 2020-07-05 17:43 | disposition home or self-care (01) ==
LOC: M ED 15:56
DX: R07.89 Other chest pain (principal); Y04.8XXA Assault by other bodily force, initial encounter; Y07.03 Male partner, perpetrator of maltreatment and neglect; Y92.410 Unspecified street and highway as the place of occurrence of the external cause; Y93.9 Activity, unspecified; Y99.9 Unspecified external cause status; F17.200 Nicotine dependence, unspecified, uncomplicated

== ENCOUNTER 2022-11-13 09:16 | Emergency (ER) | payer SELFPAY ==
[~2022-11-13] VITALS: Ht 165.1 cm; Wt 74.0 kg
[2022-11-13 09:16] VITALS: BP 134/58; TEMP 98; O2SAT 99
[~2022-11-13 09:16] MED LIST changes: +ANEC4CRE3 TOP; +NAPR-837 PO
== END 2022-11-13 10:25 | disposition left against medical advice (07) ==
LOC: M ED 09:16
DX: Z53.21 Procedure and treatment not carried out due to patient leaving prior to being seen by health care provider (principal)

== ENCOUNTER 2023-03-27 19:53 | Emergency (ER) | payer OTHER ==
[~2023-03-27] VITALS: Ht 170.2 cm; Wt 78.4 kg
[2023-03-27 19:54] VITALS: BP 130/84; O2SAT 96
[2023-03-27 20:20] VITALS: TEMP 101.4
== END 2023-03-27 21:06 | disposition left against medical advice (07) ==
LOC: M ED 19:53
DX: Z53.21 Procedure and treatment not carried out due to patient leaving prior to being seen by health care provider (principal)

== ENCOUNTER 2023-08-18 06:55 | Emergency (ER) | payer OTHER, SELFPAY | END 2023-08-19 07:34 | disposition left against medical advice (07) | LOC: M ED 08-19 06:55 | DX: Z53.21 Procedure and treatment not carried out due to patient leaving prior to being seen by health care provider (principal) ==

== ENCOUNTER → 2025-02-26 | Outpatient (CLI) | payer OTHER | LOC: M RAD 07:57 | PROVIDERS: ATTEND Nurse Practitioner Family | DX: N94.10 Unspecified dyspareunia (principal) ==

== ENCOUNTER → 2025-04-11 | Outpatient (CLI) | payer OTHER | LOC: MERGE 02-13 11:30 → M SLEEP HO 02-13 11:43 | PROVIDERS: ATTEND Nurse Practitioner Family | DX: G47.33 Obstructive sleep apnea (adult) (pediatric) (principal) ==